=== PATIENT | female | born 1970 | race African-American/Black ===

== ENCOUNTER 2016-08-23 08:07 | Day surgery (SDC) | payer OTHER ==
[2016-08-22 11:14] VITALS: Ht 162.6 cm; Wt 70.0 kg
[~2016-08-23] VITALS: Ht 162.6 cm; Wt 70.0 kg
[2016-08-23] VITALS (14 sets, daily range): BP systolic 126–162; BP diastolic 64–92; PULSE 58–76; RESP 12–25
[~2016-08-23 08:07] MED LIST: GLYCOPYRROLATE 0.4 MG INJ ONE
[2016-08-23 08:57] LABS: BASOPHIL # 0.1 10^3/ul (0.0-0.1); BASOPHILS % 1.2 % (0.0-2.0); EOSINOPHILS # 0.1 10^3/ul (0.0-0.5); EOSINOPHILS % 2.2 % (0.0-7.0); HEMOGLOBIN 13.9 g/dl (12.0-16.0); LYMPHOCYTES # 2.9 10^3/ul (0.8-2.9); LYMPHOCYTES % 53.1 % (15.0-51.0); MEAN CORPUSCULAR HEMOGLOBIN 30.6 pg (29.0-33.0); MEAN CORPUSCULAR VOLUME 90.1 fl (82.0-101.0); MEAN PLATELET VOLUME 8.7 fl (7.4-10.4); MONOCYTE # 0.3 10^3/ul (0.3-0.9); MONOCYTES % 6.3 % (0.0-11.0); NEUTROPHILS % 37.2 % (39.0-77.0); PLATELET COUNT 207 10^3/UL (140-440); RED BLOOD COUNT 4.55 10^6/ul (4.20-5.40); RED CELL DISTRIBUTION WIDTH 12.5 % (11.5-14.5); UNCORRECTED WBC 5.4 10^3/ul (4.8-10.8); WHITE BLOOD COUNT 5.4 10^3/ul (4.8-10.8)
[2016-08-23 08:58] LABS: CONDITION 1; LH ANALYZER COMMENTS 1
[2016-08-23] MEDS ORDERED: TRAZ50TA18 PO (09:03)
[2016-08-23 09:04] LABS: INR 1.03; PROTIME 13.5 Sec (12.2-14.2); PT RATIO 1.1
[2016-08-23] MEDS ORDERED: DOCU-159 PO (09:05)
[2016-08-23 09:11] LABS: ALBUMIN/GLOBULIN RATIO 1.05; BILIRUBIN,INDIRECT 0.6 mg/dl (0-1.1); BILIRUBIN,TOTAL 0.6 mg/dl (0.2-1.3); TOTAL PROTEIN 7.8 g/dl (6.1-8.1)
[2016-08-23] MEDS ORDERED: BUPIVACAINE 0.25%/EPI (SDV) 30 ML INJ ONE (09:14)
[2016-08-23] MEDS ORDERED: GENTAMICIN 0.1% CREAM 15GM TUBE TOP ONE (09:14)
--- NOTE | 2016-08-23 09:16 | RADRPT ---
PROCEDURE: XR Chest. CLINICAL INDICATION: preop TECHNIQUE: Single frontal view of the chest was obtained COMPARISON: None FINDINGS: The heart and mediastinum are within normal limits. The lungs are clear. There is no pleural effusion or pneumothorax. RPTAT: AA IMPRESSION: No acute disease. .Marino Nuñez MD, Date Time Electronically viewed and signed by .Marino Nuñez MD, on 08/23/2016 09:15 .S/
[2016-08-23 09:24] LABS: CALCIUM 9.3 mg/dl (8.4-10.2); CREATININE 0.75 mg/dl (0.44-1.00)
--- NOTE | 2016-08-23 09:40 | HPN ---
Date/Time of Note Date/Time of Note DATE: 08/23/16 TIME: 09:39 Interval H&P Admission Note Pt. seen H&P reviewed: No system changes TICO HENDRICKS MD Aug 23, 2016 09:40
[2016-08-23] MEDS ORDERED: CEFAZOLIN 2 GM/50 ML (PMX) 50 ML IVPB ONE (09:49)
[2016-08-23] MEDS ORDERED: GENTAMICIN 80 MG/NS (PMX) 50 ML IVPB ONE (10:00)
[2016-08-23] MEDS ORDERED: PROPOFOL 20 ML ONE (10:00)
[2016-08-23] MEDS ORDERED: LIDOCAINE 2% (SDV) 5 ML INJ ONE (10:00)
[2016-08-23] MEDS ORDERED: MIDAZOLAM 1 MG/ML 2 ML INJ ONE (10:00)
[2016-08-23] MEDS ORDERED: FENTAnyl 50 MCG/ML VIAL ONE (10:01)
[2016-08-23] MEDS ORDERED: SUCCINYLCHOLINE CHLORIDE 100 MG/5 ML SYG IV ONE (10:01)
[2016-08-23 10:26] LABS: ANISOCYTOSIS 1+; HYPOCHROMASIA 1+
[2016-08-23] MEDS ORDERED: ACETAMINOPHEN 1000MG/100ML IV 100 ML ONE (10:40)
[2016-08-23] MEDS ORDERED: ROCURONIUM 50 MG INJ ONE (10:43)
[2016-08-23] MEDS ORDERED: HYDROmorphONE 2 MG/ML SYG ONE (10:46)
[2016-08-23] MEDS ORDERED: FAMOTIDINE 20 MG INJ ONE (10:47)
[2016-08-23] MEDS ORDERED: DEXAMETHASONE 4 MG/ML 1 ML INJ ONE (10:47)
[2016-08-23] MEDS ORDERED: ONDANSETRON 4 MG INJ ONE (10:47)
[2016-08-23] MEDS: LACTATED RINGER'S 1,000 ML IV SCH ×2 (10:50→11:54)
[2016-08-23] MEDS ORDERED: ONDANSETRON 4 MG INJ IV PRN ×2 (11:00→12:30)
[2016-08-23] MEDS ORDERED: oxyCODONE 5 MG TAB PO PRN (11:00)
[2016-08-23] MEDS ORDERED: PROCHLORPERAZINE 10 MG INJ IV PRN (11:00)
[2016-08-23] MEDS ORDERED: MEPERIDINE 25 MG INJ IV PRN (11:00)
[2016-08-23] MEDS ORDERED: HYDROmorphONE (0.2 MG/ML) 10ML SYG IV PRN ×3 (11:00)
[2016-08-23] MEDS ORDERED: FENTAnyl 50 MCG/ML VIAL IV PRN (11:00)
[2016-08-23] MEDS ORDERED: DIPHENHYDRAMINE 50 MG INJ IV PRN (11:00)
[2016-08-23] MEDS ORDERED: LIDOCAINE 1%/EPI 30 ML INJ ONE (11:36)
[2016-08-23] MEDS ORDERED: NEOSTIGMINE 3 MG/3 ML SYRINGE ONE (11:42)
[2016-08-23] MEDS ORDERED: LACTATED RINGER'S 1,000 ML IV SCH ×2 (12:09)
[2016-08-23] MEDS ORDERED: HYDROCODONE/APAP (5/325) TAB PO PRN ×2 (12:30)
[2016-08-23] MEDS ORDERED: morphine 2 MG INJ IV PRN (12:30)
[2016-08-23] MEDS ORDERED: CEFAZOLIN 1 GM INJ ONE (13:06)
--- NOTE | 2016-08-23 18:44 | OPR ---
DATE OF OPERATION: 08/23/2016 PREOPERATIVE DIAGNOSIS: Extensive internal and external hemorrhoids. POSTOPERATIVE DIAGNOSES: Extensive internal and external hemorrhoids. PROCEDURE PERFORMED: 1. Ligation of the pedicles at 11, 4 and 6 o'clock position in jackknife position. 2. Hemorrhoidectomy at 11 and 5 o'clock position. 3. Partial lateral internal sphincterotomy at 3 o'clock in jackknife position. SURGEON: Jose D Hendricks MD GOVERNMENT DOCUMENTS LIBRARIAN: None. ANESTHESIA: General and local. ANESTHESIOLOGIST: Marry Ralph MD ESTIMATED BLOOD LOSS: 20 mL. INDICATION: The patient is a 46-year-old female who was referred to my office complaining of hemorr hoids. She stated that she has had and has been aware of the presence of hemorrhoids for many, many years and has been bleeding on and off, sometimes protrudes out does not go in. On examination, she was found to have extensive prolapsing hemorrhoids all around and also more hemorrhoids internally grades of I or II or III. At least 2 prominent pockets of hemorrhoids at 11 o'clock and 6 o'clock p ositions, prone. Discussed with the patient the alternatives of treatment, risks and benefits of op eration, possible complications including but not limited to: 1. Damage to sphincter. 2. Possible bleeding postoperatively. 3. Possible stenosis of the anal orifice. 4. Chronic pain. 5. Recurrence of the hemorrhoids. 6. Need for possible further operation to correct any stenosis or any other problems. The patient understood and wanted the operation to be done and consent was obtained and proceeded w ith operation. DESCRIPTION OF PROCEDURE: The patient was brought to the operating room today, placed on operating table in supine position. Anesthesia was induced by the anesthesiologist. Then, position of the pa tient was changed to prone position, jackknife. Timeout was called. Patient was identified and the site of operation was discussed among the team and all concerned. Then, tape was applied over the skin of the buttocks on both sides and was pulled on the sides so that the perineal area could be s tretched and could be more visible for operation. Then, prep and drape was done with Betadine in a sterile fashion and was draped. All through the operation, a mixture of 30 mL of 0.25% Marcaine wit h epinephrine, plus 30 mL of 1% Xylocaine with epinephrine was used for local anesthesia. Digital examination was performed. First after putting an anal retractor, we inspected and found th ere were huge prominent pockets of hemorrhoids, more prominent and protruded at 11 o'clock in prone position and 5 o'clock, but reaching 4 and 6 o'clock positions. Then, there were more grade I and g rade II hemorrhoids internally. The mucosa of the rectum appeared to be having some spots of melano sis coli to my opinion. In any case, decision was made to proceed with excision. Local anesthesia was injected. Before proceeding with excision, now using #2-0 chromic, the pedicles at 11 o'clock, 4 o'clock and 6 o'clock were suture ligated. Then, attention was paid toward the pocket at 11 o'lu ck. Elliptical incision was made over the mucosa toward the sutured pedicle and then extending to t he skin of the perineal area beyond the junction of the anal dermal junction and then was carried do wn through subcutaneous tissue until the internal oblique muscle was identified. Then, it was shave d from the internal oblique muscle toward the pedicle and eventually the big chunk of hemorrhoidal t issue was . The attachment to the most anterior part mainly close to the pedicle was divid ed with the LigaSure device. No bleeding. Then, this was a kind of [place] submucosal excision. Then , the mucosa internally was approximated with 2-0 chromic continuous running was performed to the an al dermal junction. The remaining was left open. Then, attention was paid toward the 5 o'clock and the same procedure. The pedicle was excised and t hen the mucosa was closed with running up to the anal dermal junction. I should mention that there were a few more spots of the external hemorrhoids and also internal hemorrhoids grade I or II, which I left them alone because I was afraid of getting stenosis of the anal canal and the anal orifice. Then, more lidocaine and Xylocaine mixture was injected all around and again inspected. There was no evidence of bleeding. Then, at 3 o'clock position, a transverse incision was made and the quality intern al oblique muscle was identified and partial lateral internal sphincterotomy about 6 mm in length an d depth was performed. Bimanual digital dilatation was performed. The sphincterotomy was performed as a prophylaxis for formation of anal fissure postoperatively. The patient tolerated the procedur e well. Sponge and instrument counts were reported correct x2. Estimated blood loss was 20 mL. T he patient was extubated, transferred to the recovery room in stable condition. The specimen of two pieces was sent for pathologic evaluation. Gentamicin ointment and a dry dressing were applied ext ernal to the anal orifice over the wound. Dictated By: JOSE D HENDRICKS MD PS/NTS Conf#: [id number] DID#: [id number]
--- NOTE | 2016-08-23 22:57 | RADRPT ---
Vent Rate: 63 bpm RR Interval: 0 msec NV Interval: 164 msec QRS Duration: 80 msec QT Interval: 390 msec QTC Interval: 399 msec P-R-T [place]: 66 - 83 - 53 degrees Normal sinus rhythm Normal ECG Electronically Signed By: Shawn Shultz [id number]
== END 2016-08-23 23:00 | disposition home or self-care (01) ==
LOC: SDS 08:07
DX: K64.8 Other hemorrhoids (principal); K64.4 Residual hemorrhoidal skin tags
CPT/HCPCS: 46260; 71010; 80053; 84703; 85025; 85610; 85730; 88304; 93005; J0330; J0690; J1100; J1170; J1580; J2250; J2405; J2710; J3010; Z7512; Z7610; J0131

== ENCOUNTER 2016-12-13 08:10 | Day surgery (SDC) | payer OTHER ==
[2016-12-13] VITALS (8 sets, daily range): BP systolic 134–158; BP diastolic 71–86; PULSE 74–136; RESP 12–18; Ht 157.5 cm; Wt 74.2 kg
[~2016-12-13] VITALS: Ht 157.5 cm; Wt 74.2 kg
[~2016-12-13 08:10] MED LIST changes: +DOCU-159 PO; +GENTAMICIN 80 MG/NS (PMX) 50 ML IVPB SCH; -GLYCOPYRROLATE 0.4 MG INJ ONE; +LACTATED RINGER'S 1,000 ML IV* SCH; +TRAZ50TA18 PO
[2016-12-13] MEDS ORDERED: ZOLP5TAB PO (08:27)
[2016-12-13 09:16] LABS: ADD SCAN DIFF NO
--- NOTE | 2016-12-13 09:17 | RADRPT ---
PROCEDURE: XR Chest. CLINICAL INDICATION: Preoperative, hemorrhoids TECHNIQUE: Single frontal view of the chest was obtained COMPARISON: 08/23/2016 FINDINGS: The heart and mediastinum are within normal limits. The lungs are clear. There is no pleural effusion or pneumothorax. RPTAT: AA IMPRESSION: No acute disease. .Marino Nuñez MD, MD Date Time Electronically viewed and signed by .Marino Nuñez MD, on 12/13/2016 09:16 .S/
[2016-12-13 09:20] LABS: BASOPHILS % 0.5 % (0.0-2.0); EOSINOPHILS # 0.1 10^3/ul (0.0-0.5); EOSINOPHILS % 1.7 % (0.0-7.0); HEMATOCRIT 39.7 % (37.0-47.0); LYMPHOCYTES # 2.4 10^3/ul (0.8-2.9); LYMPHOCYTES % 41.1 % (15.0-51.0); MEAN CORPUSCULAR HEMOGLOBIN 31.6 pg (29.0-33.0); MEAN CORPUSCULAR HGB CONC 35.3 g/dl (32.0-37.0); MEAN CORPUSCULAR VOLUME 89.6 fl (82.0-101.0); MEAN PLATELET VOLUME 11.1 fl (7.4-10.4); MONOCYTE # 0.4 10^3/ul (0.3-0.9); MONOCYTES % 6.6 % (0.0-11.0); NEUTROPHIL # 2.9 10^3/ul (1.6-7.5); NEUTROPHILS % 49.8 % (39.0-77.0); PLATELET COUNT 211 10^3/UL (140-415); RED BLOOD COUNT 4.43 10^6/ul (4.20-5.40); WHITE BLOOD COUNT 5.8 10^3/ul (4.8-10.8)
[2016-12-13 09:28] LABS: INR 0.95; PROTIME 12.7 Sec (12.2-14.2)
[2016-12-13 09:29] LABS: PARTIAL THROMBOPLASTIN TIME 31.2 Sec (25.0-35.0)
[2016-12-13] MEDS ORDERED: GENTAMICIN 0.1% CREAM 15GM TUBE TOP ONE (09:31)
[2016-12-13] MEDS ORDERED: BUPIVACAINE 0.25%/EPI (SDV) 30 ML INJ ONE (09:31)
[2016-12-13 09:32] LABS: CALCIUM 8.7 mg/dl (8.4-10.2); CREATININE 0.68 mg/dl (0.44-1.00); POTASSIUM 4.6 mmol/L (3.5-5.1)
[2016-12-13] MEDS ORDERED: EPINEPHrine 0.1 MG/ML SYG ONE (09:32)
[2016-12-13] MEDS ORDERED: MIDAZOLAM 1 MG/ML 2 ML INJ ONE (09:52)
[2016-12-13] MEDS ORDERED: FENTAnyl 50 MCG/ML VIAL ONE (09:53)
[2016-12-13] MEDS ORDERED: LIDOCAINE 0.5%/EPI (MDV) 50 ML INJ ONE (09:59)
[2016-12-13] MEDS ORDERED: FENTAnyl 50 MCG/ML VIAL IV PRN (10:00)
[2016-12-13] MEDS ORDERED: MEPERIDINE 25 MG INJ IV PRN (10:00)
[2016-12-13] MEDS ORDERED: ONDANSETRON 4 MG INJ IV PRN ×2 (10:00→12:00)
[2016-12-13] MEDS ORDERED: DIPHENHYDRAMINE 50 MG INJ IV PRN (10:00)
[2016-12-13] MEDS ORDERED: HYDROmorphONE (0.2 MG/ML) 10ML SYG IV PRN ×2 (10:00)
[2016-12-13] MEDS ORDERED: GENTAMICIN 80 MG INJ ONE (10:44)
[2016-12-13] MEDS ORDERED: ROCURONIUM 50 MG INJ ONE (11:35)
[2016-12-13] MEDS ORDERED: LIDOCAINE 2% (SDV) 5 ML INJ ONE (11:35)
[2016-12-13] MEDS ORDERED: NEOSTIGMINE 3 MG/3 ML SYRINGE ONE (11:35)
[2016-12-13] MEDS ORDERED: ONDANSETRON 4 MG INJ ONE (11:35)
[2016-12-13] MEDS ORDERED: GLYCOPYRROLATE 0.4 MG INJ ONE (11:35)
[2016-12-13] MEDS ORDERED: PROPOFOL 20 ML ONE (11:35)
[2016-12-13] MEDS ORDERED: LACTATED RINGER'S 1,000 ML IV SCH ×2 (11:36)
[2016-12-13] MEDS ORDERED: HYDROCODONE/APAP (5/325) TAB PO PRN ×2 (12:00)
[2016-12-13] MEDS ORDERED: morphine 2 MG INJ IV PRN (12:00)
--- NOTE | 2016-12-13 12:44 | OPR ---
DATE OF OPERATION: 12/13/2016 SURGEON: Jose D Gutierrez MD PLANT MANAGER: None. ANESTHESIA: General and local. ANESTHESIOLOGIST: Dr. Sanchez PREOPERATIVE DIAGNOSIS: Extensive remaining external and internal hemorrhoids. POSTOPERATIVE DIAGNOSES: 1. Extensive remaining external and internal hemorrhoids. 2. Anal polyp. OPERATION PERFORMED: 1. Ligation of the pedicles of the hemorrhoidal pockets at 1, 5, 7 and 11 o'clock position. 2. Excision of internal and external hemorrhoidal pocket at 1, 5, 7 and 11 o'clock position. 3. Removal of the anal polyp. 4. Partial lateral internal sphincterotomy at 3 o'clock position lithotomy. INDICATION: The patient is a 46-year-old female who had very extensive internal and external hemorr hoids, presented to office a few months ago and has history of bleeding and wanted the operation to be done, so we removed part of the hemorrhoids but to prevent anal stenosis, we did not do complete removal of the hemorrhoids. Now, the second stage operation is done today. In the office and also in the holding area today morning all the alternatives of treatment, risks and benefits of operation , possible complications including but not limited to: 1. Recurrence of hemorrhoids. 2. Bleeding. 3. Infection. 4. Possible stenosis of the anal verge. 5. Possible need for further operation. Possible chronic pain was discussed with the patient and t he patient understood and accepted and agreed with operation. PROCEDURE: The patient was brought to the operating room, placed on operating table in supine posit ion. Anesthesia was induced by the anesthesiologist. Two grams of Ancef and 80 mg of gentamicin wa s given IV by the anesthesiologist, position of the patient was changed to lithotomy position with A llen stirrups. The area of the operation, namely perineum, was prepped with Betadine and draped in a sterile fashion. Time-out was called. Patient was identified, the type of operation, site of op eration was discussed among the team. Then all through the operation, a mixture of 0.5% Marcaine w ith epinephrine 25 mL plus 50 mL of 1% lidocaine with epinephrine was used for local anesthesia. Di gital rectal examination was performed. No mass was identified. Then, the surgical retractor was p laced and the anal canal then explored. There were several pockets mainly at 1, 5, 7 and 11 o'clock position. There were several more pockets of external hemorrhoids; some of them continued with the internal, some of them were not. So I started from the 7 o'clock position. Injection of the afore mentioned solution was performed and then the ____ hemorrhoidal pocket was suture ligated with #2-0 chromic. Then, the ____ technique was used and external and internal hemorrhoid was excised ____poc ket and hemostasis achieved and the mucosa was approximated with 2-0 chromic up to the anodermal nhan ction. Then attention was paid toward the 5 o'clock position pocket. The same procedure was performed, fir st ligation of the pedicle and then removal of the external and internal hemorrhoidal pocket. Then, attention was paid toward the 11 o'clock position. ____ ligation was performed. The hemorrho idal pocket was removed. Specimens were all separately marked and sent for pathologic evaluation. Lastly, the 1 o'clock position pocket was suture ligated. The ____ and then the remaining internal external hemorrhoid was removed. There were a couple of external hemorrhoids around the areas that were also removed and also there was a polyp in the anal canal posteriorly that was also removed and was sent separately. Hemostasis was checked double times, was complete. Later on, about 60 mL mor e of the aforementioned solution was injected all around the operation and deep into the perirectal area for postop analgesia. At the end, partial lateral internal sphincterotomy was performed at 3 o 'clock position in lithotomy. Final inspection revealed that there was no evidence of bleeding. Mi nimal oozing was present. Gentamicin ointment was applied outside of the anus and packed with spong es and taped to the perineal area. The patient tolerated the procedure well. Position of the patie nt was changed from lithotomy to supine position. The patient was extubated and transferred to [facility] very room in stable condition. ESTIMATED BLOOD LOSS: 20 mL. Specimen was sent for pathologic evaluation. Dictated By: JOSE D RAMIREZ/CHRISTY Conf#: [id number] DID#: [id number]
--- NOTE | 2016-12-13 20:02 | RADRPT ---
Vent Rate: 69 bpm RR Interval: 0 msec [place] Interval: 164 msec QRS Duration: 82 msec QT Interval: 384 msec QTC Interval: 411 msec P-R-T [place]: 57 - 71 - 42 degrees Normal sinus rhythm Normal ECG Electronically Signed By: Deep Gomes [id number]
== END 2016-12-13 13:30 | disposition home or self-care (01) ==
LOC: SDS 08:10
DX: K64.4 Residual hemorrhoidal skin tags (principal); K64.8 Other hemorrhoids; K62.0 Anal polyp
CPT/HCPCS: 46080; 71010; 80048; 84703; 85025; 85610; 85730; 88304; 93005; J0171; J1580; J2250; J2405; J2710; J3010; Z7512; Z7610